=== PATIENT | male | born 1945 | race Caucasian/White ===

== ENCOUNTER → 2021-09-10 | Outpatient (CLI) | payer MEDICARE ==
[2021-09-10 18:15] LABS: Basophils # (A) 0.09 X 10*3/uL (0.00-0.10); Basophils % (A) 0.7 %; Eosinophils # (A) 0.35 X 10*3/uL (0.04-0.35); Eosinophils % (A) 2.7 %; HCT 39.8 % (39.6-50.0); HGB 12.2 g/dL (13.0-17.0); Immature Grans, Automated 0.6 %; Lymphocytes # (A) 1.17 X 10*3/uL (0.90-5.00); Lymphocytes % (A) 9.2 %; MCH 26.7 pg (27.0-32.0); MCHC 30.7 g/dL (32.0-37.0); MCV 87.1 fL (80.0-97.0); Mean Platelet Volume 9.5 fL (9.5-12.2); Monocytes # (A) 1.05 X 10*3/uL (0.20-1.00); Monocytes % (A) 8.2 %; NRBC Per 100 WBC 0 /100 WBCS (0.0-0.0); Neutrophils % (A) 78.6 %; Platelet Count 503 X 10*3/uL (140-440); RBC 4.57 X 10*6/uL (4.40-5.60); RDW 14.2 % (11.5-14.5); WBC 12.74 X 10*3/uL (4.50-10.00)
[2021-09-10 18:25] LABS: ALT 10 U/L (10-49); AST 14 U/L (14-35); African American GFR (CKD) 101.7 (60.0-200.0); Albumin 3.6 g/dL (3.8-4.9); Albumin/Globulin Ratio 1.09 (1.60-3.17); Alkaline Phosphatase 98 U/L (41-126); BUN/Creat Ratio 20.71 Ratio (12.00-20.00); Blood Urea Nitrogen 16.4 mg/dL (9.0-27.0); Calcium 9.1 mg/dL (8.7-10.3); Carbon Dioxide 22.6 mmol/L (20.0-27.5); Chloride 99 mmol/L (96-109); Globulin 3.3 g/dL (1.6-3.3); Glucose 100 mg/dL (70-110); Non-African American GFR(CKD) 87.8 (60.0-200.0); Potassium 4.4 mmol/L (3.5-5.5); Sodium 134 mmol/L (135-145); Total Bilirubin <0.15 mg/dL (0.30-1.20); Total Protein 6.9 g/dL (6.2-8.2)
== END | disposition home or self-care (01) ==
LOC: LABPAT 12:53
PROVIDERS: ATTEND Urology
DX: Z01.812 Encounter for preprocedural laboratory examination (principal); N20.2 Calculus of kidney with calculus of ureter
CPT/HCPCS: 80053; 85025

== ENCOUNTER 2021-09-17 09:14 | Observation (INO) | payer MEDICARE ==
[2021-09-10 15:18] VITALS: BMI 20.3
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
[~2021-09-17 09:14] MED LIST: AMPICILLIN 1,000 MG in SODIUM CHLORIDE 0.9% 50 ML IVPB PRN; GENTAMICIN 100 MG in SODIUM CHLORIDE 0.9% 100 ML IVPB PRN; HYDROmorphone 0.5 MG/0.5 ML SYRINGE IVP PRN; MIDAZOLAM 2 MG/2 ML VIAL IV PRN
[2021-09-17 09:50] LABS: Glucose,Whole Blood 84 mg/dL (75-99)
[2021-09-17] MEDS: LACTATED RINGERS 1,000 ML IV SCH ×2 (09:56→11:02)
[2021-09-17] MEDS ORDERED: LIDOCAINE 1% (10MG/ML) FOR IV START INTRADERMA ONE (09:56)
[2021-09-17] MEDS: DEXAMETHASONE SOD PHOSPHATE 4 MG/ML 1 ML VIAL IV ONE ×2 (09:58→14:31)
[2021-09-17] MEDS: ONDANSETRON 4 MG/2 ML VIAL IVP ONE ×2 (09:58→14:31)
[2021-09-17] MEDS ORDERED: LIDOCAINE 1% INJ 10MG/ML (20 ML MDV) ONE (10:59)
[2021-09-17] MEDS ORDERED: fentaNYL (PF) 50 MCG/ML 2 ML AMP ONE (10:59)
[2021-09-17] MEDS ORDERED: MIDAZOLAM 2 MG/2 ML VIAL ONE (10:59)
[2021-09-17] MEDS ORDERED: ROCURONIUM 10 MG/ML (5 ML VIAL) IV ONE (10:59)
[2021-09-17] MEDS ORDERED: PROPOFOL 10 MG/ML 20 ML VIAL IV ONE (10:59)
[2021-09-17] MEDS ORDERED: GLYCOPYRROLATE 0.2 MG/ML 2 ML VIAL ONE (10:59)
[2021-09-17] MEDS ORDERED: NEOSTIGMINE 1 MG/ML 10 ML VIAL ONE (10:59)
[2021-09-17] MEDS ORDERED: IOPAMIDOL-370 50ML BTL MISCELLANE ONE (12:00)
[2021-09-17] MEDS ORDERED: ONDANSETRON 4 MG/2 ML VIAL IVP PRN (13:54)
[2021-09-17] MEDS ORDERED: KETOROLAC 15 MG/ML 1 ML VIAL IVP PRN (13:55)
[2021-09-17] MEDS ORDERED: HYDROmorphone PCA 10 MG/50 ML BAG IV PRN (13:55)
[2021-09-17] MEDS ORDERED: NALOXONE 0.4 MG/ML 1 ML VIAL IV PRN (13:55)
--- NOTE | 2021-09-17 14:02 | P.OP ---
Date of Procedure: 09/17/21 Preoperative Diagnosis: Left renal calculus, infected, large Postoperative Diagnosis: Same, large bladder calculi Procedure(s) Performed: Cystoscopy, cystolithotripsy (large greater than 2.5 cm), percutaneous nephrostomy (Dr. Bryant percutaneous nephrostolithotomy large, greater than 3 cm with ultrasound, placement of 10 J nephrostomy Anesthesia: JODEE Surgeon: Titus Valerio Estimated Blood Loss (ml): 50 Pathology: other (Bladder stone, kidney stones) Condition: stable Disposition: PACU Indications for Procedure: The patient is 76. He been paraplegic for over 50 years. He is on intermittent catheterization. He is only had a septic episode. He is found to have a staghorn calculus, full branch in the left kidney. He comes for percutaneous nephrostolithotomy. He is on culture specific antibiotics. Description of Procedure: Patient brought to the operative suite. He is given general anesthesia on the operating table. He's placed lithotomy position with sterile prep and drape. Cystoscopy 21-Danish sheath and Foroblique lens identifies an obstructing prostate with edema around the bladder neck. Multiple stones are identified greater than 2.5 cm. Both ureteral orifices identified. With the 500 laser probe I break the stones into tiny fragments and flushed out of the bladder. I then intubate the left ureter orifice with a 5-Danish occluding balloon catheter passed up the UPJ. It is secured to a 16-Danish Edmond The patient's placed in prone position with care to airways and extremities. Dr. Bryant of radiology performed percutaneous access to a middle pole calyx. We were able to then dilate the tract to 30-Danish. I then look in with the rigid scope and identify the large calculus (greater than 3 cm) in the renal pelvis a. With the ultrasonic wand I break this into tinier fragments in either grass then or suction the mouth. The stone is soft consistent with a struvite stone. There are multiple other stones in the renal pelvis that are removed either with ultrasound or grasping. I then pass the flexible scope throughout the collecting system and remove more stones. This is done with stone basketing. I then looked down the UPJ and remove any fragments that he passed down there. At the end of the procedure I see no remaining stone in the collecting system other than sand. A 10 J nephrostomy tube was placed through the working sheath. It is secured to the skin with 2-0 silk. The patient's awake and returned recovery in good condition. He tolerated the procedure well. Blood loss was about 50 mL. A be placed in the hospital postoperatively.
[2021-09-17 14:21] LABS: Glucose,Whole Blood 83 mg/dL (75-99)
[2021-09-17] MEDS ORDERED: hydrALAZINE HCL 20 MG/ML 1 ML VIAL IVP ONE (14:49)
[2021-09-17] MEDS: DEXTROSE 5%-0.45% NACL 1,000 ML IV SCH (15:46)
--- NOTE | 2021-09-17 16:20 | FL ---
EXAMINATION TYPE: FL Perc Nephrostomy New Access DATE OF EXAM: 09/17/2021 COMPARISON: CT scan from outside institution HISTORY: Hydronephrosis, ureteral obstruction with left renal calculi. PROCEDURE: Maximal barrier technique was utilized, hand hygiene obtained with soap and water and alcohol-based h and rub. The skin overlying the left kidney was localized using fluoroscopy and the overlying skin p repped and draped. Skin lisa was made with a scalpel. Access was gained under fluoroscopy, following placement of a ureteral occlusion balloon by the referring clinician and instillation of air in the renal collecting system with a 21-gauge needle to posterior left kidney. A suitable posterior calyx was chosen. A 0.018 inch wire was advanced. The access site was dilated , access site was upsized, safety wire deployed and subsequently a sheath was advanced into the renal pelvis following dilation with balloon along the tract. The patient underwent nephrolithotomy by the referring clinician. Th e patient remained in stable condition without complication. [facility]. 5.06 minutes fluoroscopy time, 10 intraoperative C-arm images document the procedure IMPRESSION: STATUS POST NEPHROSTOMY PLACEMENT FOR NEPHROLITHOTOMY WITH FLUOROSCOPIC GUIDANCE. THIS PROCEDURE PER FORMED BY THE UNDERSIGNED.
[2021-09-17 20:41] LABS: Glucose,Whole Blood 131 mg/dL (75-99)
[2021-09-17] MEDS: MAG HYDROX/AL HYDROX/SIMETH 30 ML CUP PO PRN (21:15)
[2021-09-17] MEDS: CIPROFLOXACIN HCL 500 MG TAB PO SCH (21:15)
[2021-09-17] MEDS: ACETAMINOPHEN TAB 325 MG TAB PO PRN (21:15)
[2021-09-18] MEDS: DEXTROSE 5%-0.45% NACL 1,000 ML IV SCH ×3 (00:17→19:54)
[2021-09-18 06:49] LABS: Glucose,Whole Blood 153 mg/dL (75-99)
--- NOTE | 2021-09-18 07:28 | P.PN ---
Subjective Progress Note Date: 09/18/21 The patient is in his first postoperative day from a left percutaneous nephrostolithotomy (large), cystolithotripsy, (large). He is a T9 paraplegic for many years. Urethral catheter is light pink to T colored. There is a moderate amount of blood in the nephrostomy tube. He is feeling well. His vital signs are stable. He is not ready to be discharged home. We'll continue to observe him and continue with IV fluids for the next 24 hours. DEPending on his responses to whether we discharged tomorrow. Objective - Vital Signs Vital signs: Vital Signs Temp 98.5 F 09/18/21 07:16 Pulse 94 09/18/21 07:16 Resp 16 09/18/21 07:16 BP 138/75 09/18/21 07:16 Pulse Ox 98 09/18/21 07:16 Intake & Output 09/17/21 09/18/21 09/18/21 18:59 06:59 18:59 Intake Total 1227.5 Output Total 1150 Balance 77.5 Weight 68 kg Intake: IV 1227.5 Output: Drainage 100 Left Back 100 Urine 1000 Estimated Blood Loss 50 Other: Voiding Method Indwelling Catheter Indwelling Catheter - Labs Labs: Abnormal Lab Results - Last 24 Hours (Table) 09/17/21 09/18/21 Range/Units 20:23 06:47 POC Glucose (mg/dL) 131 H 153 H (75-99) mg/dL
[2021-09-18] MEDS: LACTATED RINGERS 1,000 ML IV SCH (07:43)
[2021-09-18] MEDS: amLODIPine 5 MG TAB PO SCH (09:24)
[2021-09-18] MEDS: CIPROFLOXACIN HCL 500 MG TAB PO SCH ×2 (09:24→19:56)
[2021-09-18 11:26] LABS: Glucose,Whole Blood 141 mg/dL (75-99)
[2021-09-18 16:21] LABS: Glucose,Whole Blood 158 mg/dL (75-99)
[2021-09-18] MEDS: MAG HYDROX/AL HYDROX/SIMETH 30 ML CUP PO PRN (19:54)
[2021-09-18 20:35] LABS: Glucose,Whole Blood 139 mg/dL (75-99)
[2021-09-18] MEDS ORDERED: MELATONIN 5 MG TABLET PO PRN (22:35)
[2021-09-18] MEDS ORDERED: NA PHOS,M-B/NA PHOS,DI-BA 133 ML ENEMA RECTAL PRN (23:00)
[2021-09-18] MEDS ORDERED: bisacodyL 5 MG TABLET.DR PO PRN (23:00)
[2021-09-19] MEDS: ACETAMINOPHEN TAB 325 MG TAB PO PRN (02:58)
[2021-09-19 07:00] LABS: Glucose,Whole Blood 142 mg/dL (75-99)
[2021-09-19 07:23] VITALS: RESP 19
[2021-09-19] MEDS: LACTATED RINGERS 1,000 ML IV SCH (08:29)
[2021-09-19] MEDS: DEXTROSE 5%-0.45% NACL 1,000 ML IV SCH (08:29)
[2021-09-19] MEDS: amLODIPine 5 MG TAB PO SCH (08:38)
[2021-09-19] MEDS: CIPROFLOXACIN HCL 500 MG TAB PO SCH (08:38)
--- NOTE | 2021-09-19 09:22 | P.DS ---
Providers Date of admission: 09/18/21 14:02 Attending physician: Titus Valerio Primary care physician: [facility] Course: The patient is a 76-year-old T9 paraplegic with a staghorn calculus a left and bladder stones. He underwent cystoscopy lithotripsy and percutaneous nephrostolithotomy on 09/17/2021. He is doing well. He is afebrile this morning. He had a low-grade temperature last night as expected. The urine is clearing up. I'll remove his Edmond catheter. He is ready for discharge home. He will take Tylenol or Motrin for pain. He is given a prescription of Bactrim for infection. He will go home with a nephrostomy tube and follow in the office next week for removal. He'll increase his intermittent catheterization for 6 times per day. Postoperative instructions have been given. Patient Condition at Discharge: Good Plan - Discharge Summary Discharge Rx Participant: Yes New Discharge Prescriptions: No Action amLODIPine [Norvasc] 5 mg PO DAILY Cranberry Conc. 1 tab PO DAILY Discharge Medication List Cranberry Conc. 1 tab PO DAILY 09/10/21 [History] amLODIPine [Norvasc] 5 mg PO DAILY 09/10/21 [History] Follow up Appointment(s)/Referral(s): Titus Valerio MD [STAFF PHYSICIAN] - 09/25/21 8:20 am Discharge Disposition: HOME SELF-CARE
[2021-09-19 11:08] LABS: Glucose,Whole Blood 164 mg/dL (75-99)
[2021-09-19 13:31] VITALS: BP 143/64; PULSE 103; TEMP 99.7
== END 2021-09-19 15:03 | disposition home or self-care (01) ==
LOC: OR 09:14 → 4SSUR 13:53 → OR 09-18 13:46 → 4SSUR 09-18 14:02
PROVIDERS: ADMIT Urology; ATTEND Urology
DX: N13.2 Hydronephrosis with renal and ureteral calculous obstruction (principal); G82.20 Paraplegia, unspecified; N21.0 Calculus in bladder; I10 Essential (primary) hypertension; R73.03 Prediabetes; Z87.440 Personal history of urinary (tract) infections; Z87.442 Personal history of urinary calculi; Z79.899 Other long term (current) drug therapy; Z88.0 Allergy status to penicillin; Z88.1 Allergy status to other antibiotic agents; Z80.9 Family history of malignant neoplasm, unspecified
CPT/HCPCS: 82365; 50432; G0378 ×2; C1769 ×6; C2628; C1894; C1729; J2250; J0360; J1100; J2710; J2405 ×2; J2001; J3010; J1580; J0290; J1885; J2704; Q9967

== ENCOUNTER 2021-09-26 15:10 | Inpatient (IN) | payer MEDICARE ==
[2021-09-26] MEDS ORDERED: ACETAMINOPHEN TAB 500 MG TAB PO STA (16:33)
[2021-09-26] MEDS ORDERED: VANCOMYCIN IV PER PHARMACY 1 EACH MISC MISCELLANE PRN (16:33)
[2021-09-26] MEDS ORDERED: HYDROmorphone 0.5 MG/0.5 ML SYRINGE IVP PRN (16:41)
[2021-09-26] MEDS ORDERED: NALOXONE 0.4 MG/ML 1 ML VIAL IV PRN (16:41)
[2021-09-26] MEDS ORDERED: VANCOMYCIN 1,250 MG in SODIUM CHLORIDE 0.9% 250 ML IVPB STA (16:46)
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
[2021-09-26] MEDS: SODIUM CHLORIDE 0.9% 500 ML 500 ML IV SCH ×2 (18:00→18:40)
[2021-09-26] MEDS: SODIUM CHLORIDE 0.9% 1,000 ML IV SCH (19:45)
[2021-09-26] MEDS: CEFEPIME 2 GM in SODIUM CHLORIDE 0.9% 100 ML IVPB SCH (19:51)
[2021-09-26 23:28] LABS: Basophils # (A) 0.1 k/uL (0-0.2); Basophils % (A) 0 %; Eosinophils # (A) 0.2 k/uL (0-0.7); Eosinophils % (A) 1 %; HCT 26.6 % (39.0-53.0); Hypochromasia Moderate; Lymphocytes # (A) 0.8 k/uL (1.0-4.8); Lymphocytes % (A) 5 %; MCHC 30.1 g/dL (31.0-37.0); MCV 89.8 fL (80.0-100.0); Mean Platelet Volume 7.8; Monocytes # (A) 0.9 k/uL (0-1.0); Monocytes % (A) 6 %; Neutrophils % (A) 87 %; Platelet Count 885 k/uL (150-450); RBC 2.96 m/uL (4.30-5.90); WBC 16.1 k/uL (3.8-10.6)
[2021-09-26 23:31] LABS: Potassium 4.3 mmol/L (3.5-5.1)
[2021-09-26 23:32] LABS: ALT 11 U/L (4-49); AST 19 U/L (17-59); African American GFR (CKD) >90 (>60 ml/min/1.73 sqM); Albumin 2.6 g/dL (3.5-5.0); Alkaline Phosphatase 76 U/L (38-126); Anion Gap 11 mmol/L; Blood Urea Nitrogen 15 mg/dL (9-20); Calcium 7.6 mg/dL (8.4-10.2); Carbon Dioxide 18 mmol/L (22-30); Chloride 98 mmol/L (98-107); Glucose 96 mg/dL (74-99); Non-African American GFR(CKD) 85 (>60 ml/min/1.73 sqM); Sodium 127 mmol/L (137-145); Total Bilirubin 0.6 mg/dL (0.2-1.3); Total Protein 5.6 g/dL (6.3-8.2)
[2021-09-26 23:45] LABS: INR 0.9 (<1.2); Partial Thromboplastin Time 25.8 sec (22.0-30.0); Prothrombin Time 10.1 sec (9.0-12.0)
[2021-09-27] MEDS: SODIUM CHLORIDE 0.9% 1,000 ML IV SCH ×3 (02:48→17:56)
[2021-09-27] MEDS: CEFEPIME 2 GM in SODIUM CHLORIDE 0.9% 100 ML IVPB SCH ×3 (02:48→17:57)
[2021-09-27] MEDS: ACETAMINOPHEN TAB 325 MG TAB PO PRN ×2 (05:50→21:12)
[2021-09-27] MEDS ORDERED: COLLAGENASE 250 UNIT/GM OINTMENT 30 GM TUBE TOPICAL SCH (09:00)
[2021-09-27 09:18] LABS: Basophils # (A) 0.1 k/uL (0-0.2); Basophils % (A) 0 %; Eosinophils # (A) 0.4 k/uL (0-0.7); Eosinophils % (A) 3 %; HCT 25.2 % (39.0-53.0); HGB 7.8 gm/dL (13.0-17.5); Hypochromasia Moderate; Lymphocytes # (A) 0.9 k/uL (1.0-4.8); Lymphocytes % (A) 7 %; MCH 27.5 pg (25.0-35.0); MCHC 30.9 g/dL (31.0-37.0); MCV 88.9 fL (80.0-100.0); Mean Platelet Volume 7.2; Monocytes # (A) 0.6 k/uL (0-1.0); Monocytes % (A) 4 %; Neutrophils # (A) 12.3 k/uL (1.3-7.7); Neutrophils % (A) 86 %; Platelet Count 878 k/uL (150-450); RBC 2.84 m/uL (4.30-5.90); RDW 13.6 % (11.5-15.5); WBC 14.4 k/uL (3.8-10.6)
[2021-09-27] MEDS: VANCOMYCIN 1,250 MG in SODIUM CHLORIDE 0.9% 250 ML IVPB SCH ×2 (09:19→21:11)
[2021-09-27] MEDS: amLODIPine 5 MG TAB PO SCH (09:19)
[2021-09-27 09:27] LABS: African American GFR (CKD) >90 (>60 ml/min/1.73 sqM); Anion Gap 9 mmol/L; Blood Urea Nitrogen 12 mg/dL (9-20); Calcium 7.5 mg/dL (8.4-10.2); Carbon Dioxide 17 mmol/L (22-30); Chloride 104 mmol/L (98-107); Glucose 143 mg/dL (74-99); Non-African American GFR(CKD) 87 (>60 ml/min/1.73 sqM); Potassium 4.3 mmol/L (3.5-5.1); Sodium 130 mmol/L (137-145)
[2021-09-27 09:46] LABS: Appearance,Urine Clear (Clear); Bacteria,Urine Rare /hpf; Bilirubin,Urine Negative (Negative); Blood,Urine Moderate (Negative); Color,Urine Yellow; Glucose,Urine (UA) Negative (Negative); Ketones,Urine Negative (Negative); Leukocyte Esterase,Urine Trace (Negative); Mucus,Urine Rare /hpf; Nitrite,Urine Negative (Negative); Protein,Urine 1+ (Negative); RBC,Urine 13 /hpf (0-5); Specific Gravity,Urine 1.014 (1.001-1.035); Squamous Epithelial Cell,Urine 1 /hpf (0-4); Urobilinogen,Urine <2.0 mg/dL (<2.0); WBC,Urine 12 /hpf (0-5)
[2021-09-27 10:49] VITALS: BMI 20.3
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
[2021-09-27] MEDS ORDERED: hydrALAZINE HCL 25 MG TAB PO PRN (20:53)
[2021-09-27] MEDS ORDERED: NON FORMULARY DRUG (Cranberry Fruit Concentrate [Azo Cranberry] 250 MG Tab.Chew) PO SCH (21:00)
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
[2021-09-28] MEDS: SODIUM CHLORIDE 0.9% 1,000 ML IV SCH ×3 (00:37→15:15)
[2021-09-28] MEDS: CEFEPIME 2 GM in SODIUM CHLORIDE 0.9% 100 ML IVPB SCH ×3 (02:30→17:28)
[2021-09-28] MEDS: PANTOPRAZOLE 40 MG TABLET PO SCH (07:57)
[2021-09-28] MEDS: amLODIPine 5 MG TAB PO SCH (07:58)
[2021-09-28] MEDS ORDERED: VANCOMYCIN TROUGH DUE 1 EACH MISC MISCELLANE ONE (08:00)
[2021-09-28 08:26] LABS: Basophils # (A) 0.1 k/uL (0-0.2); Basophils % (A) 1 %; Eosinophils # (A) 0.6 k/uL (0-0.7); Eosinophils % (A) 3 %; HCT 25.4 % (39.0-53.0); HGB 7.7 gm/dL (13.0-17.5); Hypochromasia Moderate; Lymphocytes # (A) 1.1 k/uL (1.0-4.8); Lymphocytes % (A) 7 %; MCH 26.8 pg (25.0-35.0); MCHC 30.4 g/dL (31.0-37.0); MCV 88.2 fL (80.0-100.0); Mean Platelet Volume 6.8; Monocytes # (A) 0.7 k/uL (0-1.0); Monocytes % (A) 4 %; Neutrophils # (A) 14.1 k/uL (1.3-7.7); Neutrophils % (A) 84 %; Platelet Count 784 k/uL (150-450); RBC 2.88 m/uL (4.30-5.90); RDW 13.2 % (11.5-15.5); WBC 16.7 k/uL (3.8-10.6)
[2021-09-28 08:38] LABS: African American GFR (CKD) >90 (>60 ml/min/1.73 sqM); Anion Gap 8 mmol/L; Blood Urea Nitrogen 12 mg/dL (9-20); Calcium 7.8 mg/dL (8.4-10.2); Carbon Dioxide 19 mmol/L (22-30); Chloride 105 mmol/L (98-107); Glucose 93 mg/dL (74-99); Non-African American GFR(CKD) >90 (>60 ml/min/1.73 sqM); Potassium 4.4 mmol/L (3.5-5.1); Sodium 132 mmol/L (137-145)
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
[2021-09-28] MEDS: VANCOMYCIN 1,250 MG in SODIUM CHLORIDE 0.9% 250 ML IVPB SCH ×2 (10:52→20:15)
[2021-09-28] MEDS ORDERED: PROPOFOL 10 MG/ML 20 ML VIAL IV ONE (12:35)
[2021-09-28] MEDS ORDERED: fentaNYL (PF) 50 MCG/ML 2 ML AMP ONE (12:35)
[2021-09-28] MEDS ORDERED: LIDOCAINE 1% INJ 10MG/ML (20 ML MDV) ONE (12:35)
[2021-09-28] MEDS ORDERED: SODIUM CHLORIDE 0.9% 1,000 ML IV ONE ×2 (12:39)
[2021-09-28] MEDS ORDERED: BUPIVACAIN-EPI 0.25%-1:200,000 30 ML VIAL SQ ONE (12:42)
--- NOTE | 2021-09-28 13:30 | P.OP ---
Date of Procedure: 09/28/21 Preoperative Diagnosis: Infected decubitus ulcer Postoperative Diagnosis: Infected decubitus ulcer Procedure(s) Performed: Debridement of infected decubitus ulcer Debridement of left trochanteric ulcer Anesthesia: JODEE Surgeon: Prosper Macario Estimated Blood Loss (ml): 50 Pathology: other (Wound culture, tissue culture) Condition: stable Description of Procedure: The patient's placed on the operative table in supine position. He received general endotracheal anesthesia. He was then placed in the lateral position with the left side up. Patient's decubitus ulcer prepped and draped usual fashion. The patient had a large left decubitus ulcer on the trochanteric area. This was sharply dissected with 15 blade and then using electrocautery the nonviable skin and fat and muscle was debrided. The specimens of pathology. Hemostasis achieved with cautery. The wound measured approximately 10 x 10 cm and was approximately 4 cm deep. The decubital ulcer went down to the level of the bone. Next the sacral decubitus ulcer was sharply debrided using a 15 blade the necrotic skin and fat and muscle were sharply debrided and then a left cautery used for hemostasis. The wound measured approximately 14 x 10 x 4 cm. The decubital ulcer down to the level of the coccyx. He was essentially she will let cautery. The wound was then packed with wet-to-dry dressing. Patient top she will was sent to recovery room stable condition.
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
[2021-09-28] MEDS: ACETAMINOPHEN TAB 325 MG TAB PO PRN (19:26)
[2021-09-28] MEDS: HEPARIN SODIUM,PORCINE/PF 5,000 UNIT/0.5 ML SYRINGE SQ SCH (20:15)
--- NOTE | 2021-09-28 23:41 | P.PN ---
Subjective Progress Note Date: 09/28/21 Principal diagnosis: Infected sacral and left trochanteric pressure ulcer Patient is a 76 year male with a past medical history significant for paraplegia admitted to the hospital with worsening sacral and left trochanteric pressure ulcer in this patient who is status post surgical debridement of those ulcer completed on 09/28/2021 and was noticed the sacral area To Be Extended down to the Coccyx. On today's evaluation that is 09/28/2021, the patient denies having any fever or chills, patient do not have any pain to the wound area because of his paraplegia, the patient denies having any chest pain or shortness of breath or cough no nausea no vomiting no abdominal pain no diarrhea Objective - Vital Signs Vital signs: Vital Signs Temp 99.8 F H 09/28/21 11:43 Pulse 99 09/28/21 11:43 Resp 16 09/28/21 11:43 BP 158/70 09/28/21 11:43 Pulse Ox 98 09/28/21 11:43 Intake & Output 09/27/21 09/28/21 09/28/21 18:59 06:59 18:59 Intake Total 1890 1250 Output Total 1550 920 920 Balance 340 330 -920 Weight 68.039 kg Intake: Intake, IV Titration 1650 1250 Amount Cefepime 2 gm In Sodium 100 100 Chloride 0.9% 100 ml @ 25 mls/hr IVPB Q8H [facility] Rx#: [id number] Sodium Chloride 0.9% 1, 1300 900 000 ml @ 130 mls/hr IV . Q7H42M [facility] Rx#:[id number] Vancomycin 1,250 mg In 250 250 Sodium Chloride 0.9% 250 ml @ 125 mls/hr IVPB Q12H [facility] Rx#:[id number] Oral 240 Output: Urine 1550 920 920 Other: Voiding Method Self-Catheterization Self-Catheterization Self-Catheterization # Voids 1 - Exam GENERAL DESCRIPTION: An elderly male lying in bed in no distress RESPIRATORY SYSTEM: Unlabored breathing , decreased breath sounds at bases HEART: S1 S2 regular rate and rhythm , ABDOMEN: Soft , no tenderness EXTREMITIES: No edema feet - Labs CBC & Chem 7: 09/28/21 08:03 09/28/21 08:03 Labs: Abnormal Lab Results - Last 24 Hours (Table) 09/28/21 09/28/21 Range/Units 08:03 08:03 WBC 16.7 H (3.8-10.6) k/uL RBC 2.88 L (4.30-5.90) m/uL Hgb 7.7 L (13.0-17.5) gm/dL Hct 25.4 L (39.0-53.0) % MCHC 30.4 L (31.0-37.0) g/dL Plt Count 784 H (150-450) k/uL Neutrophils # 14.1 H (1.3-7.7) k/uL Sodium 132 L (137-145) mmol/L Carbon Dioxide 19 L (22-30) mmol/L Calcium 7.8 L (8.4-10.2) mg/dL Microbiology - Last 24 Hours (Table) 09/27/21 09:25 Urine Culture - Final Urine,Voided 09/26/21 19:10 Blood Culture - Preliminary Blood No Growth after 24 hours 09/26/21 19:18 Blood Culture - Preliminary Blood No Growth after 24 hours 09/26/21 18:52 Gram Stain - Preliminary Tissue - Other Wound Culture - Preliminary Gram Neg Bacilli Assessment and Plan (1) Infected decubitus ulcer Current Visit: Yes Status: Acute Code(s): L89.90 - PRESSURE ULCER OF UNSPECIFIED SITE, UNSPECIFIED STAGE; L08.9 - LOCAL INFECTION OF THE SKIN AND SUBCUTANEOUS TISSUE, UNSP SNOMED Code(s): 453726709 (2) Sepsis Current Visit: Yes Status: Acute Code(s): A41.9 - SEPSIS, UNSPECIFIED ORGANISM SNOMED Code(s): 97183648 Plan: 1patient presented to hospital with sepsis source is infected sacral and bilateral ischial pressure ulcer and will need to cover for the gram-positive as well as the gram-negative pathogen. 2patient with multiple antibiotic allergies that would limit the number of antibiotics safe to use. 3patient is status post surgical debridement and deep culture which should be followed and antibiotic adjusted 4vancomycin pharmacy to dose target trough of 15 while watching kidney function and vancomycin trough closely. 5cefepime 2 g every 8 hours to continue all waiting for the culture finalized Time with Patient: Less than 30
[2021-09-29] MEDS: SODIUM CHLORIDE 0.9% 1,000 ML IV SCH ×3 (00:46→17:22)
[2021-09-29] MEDS: CEFEPIME 2 GM in SODIUM CHLORIDE 0.9% 100 ML IVPB SCH ×3 (03:11→17:32)
[2021-09-29 08:07] LABS: African American GFR (CKD) >90 (>60 ml/min/1.73 sqM); Non-African American GFR(CKD) 89 (>60 ml/min/1.73 sqM)
--- NOTE | 2021-09-29 09:19 | P.PN ---
Subjective Progress Note Date: 09/29/21 Principal diagnosis: Decubitus ulcer Patient resting comfortably. No dressing changes thus far. No nausea or vomiting. Tolerating diet. Objective - Vital Signs Vital signs: Vital Signs Temp 98.5 F 09/29/21 08:06 Pulse 87 09/29/21 08:06 Resp 16 09/29/21 08:06 BP 138/67 09/29/21 08:06 Pulse Ox 99 09/29/21 08:06 Intake & Output 09/28/21 09/29/21 09/29/21 18:59 06:59 18:59 Intake Total 2530 620 Output Total 2865 250 Balance -335 370 Intake: IV 100 Intake, IV Titration 1650 620 Amount Cefepime 2 gm In Sodium 100 100 Chloride 0.9% 100 ml @ 25 mls/hr IVPB Q8H [facility] Rx#: [id number] Sodium Chloride 0.9% 1, 1300 520 000 ml @ 130 mls/hr IV . Q7H42M [facility] Rx#:[id number] Vancomycin 1,250 mg In 250 Sodium Chloride 0.9% 250 ml @ 125 mls/hr IVPB Q12H [facility] Rx#:[id number] Oral 780 Output: Urine 2840 250 Estimated Blood Loss 25 Other: Voiding Method Self-Catheterization Self-Catheterization # Voids 2 - Exam Decubitus ulcer dressing in place, no strikethrough, mild tenderness - Labs CBC & Chem 7: 09/28/21 08:03 09/29/21 07:24 Labs: Microbiology - Last 24 Hours (Table) 09/28/21 13:26 Gram Stain - Preliminary Buttock Wound Culture - Preliminary 09/28/21 13:26 Gram Stain - Preliminary Buttock Tissue Culture - Preliminary 09/26/21 18:52 Gram Stain - Final Tissue - Other Wound Culture - Final Klebsiella pneumoniae 09/26/21 19:10 Blood Culture - Preliminary Blood No Growth after 48 hours 09/26/21 19:18 Blood Culture - Preliminary Blood No Growth after 48 hours 09/28/21 13:26 Anaerobic Culture - Preliminary Buttock 09/28/21 13:26 Anaerobic Culture - Preliminary Buttock 09/27/21 09:25 Urine Culture - Final Urine,Voided Assessment and Plan (1) Infected decubitus ulcer Narrative/Plan: Patient status post debridement decubitus ulcer. Seems to be doing well today. T-max 99.7. Continue local wound care and offloading. Current Visit: Yes Status: Acute Code(s): L89.90 - PRESSURE ULCER OF UNSPECIFIED SITE, UNSPECIFIED STAGE; L08.9 - LOCAL INFECTION OF THE SKIN AND SUBCUTANEOUS TISSUE, UNSP SNOMED Code(s): 305080247
[2021-09-29] MEDS: HEPARIN SODIUM,PORCINE/PF 5,000 UNIT/0.5 ML SYRINGE SQ SCH ×2 (09:20→20:10)
[2021-09-29] MEDS: amLODIPine 5 MG TAB PO SCH (09:20)
[2021-09-29] MEDS: VANCOMYCIN 1,250 MG in SODIUM CHLORIDE 0.9% 250 ML IVPB SCH ×2 (09:20→20:09)
[2021-09-29] MEDS: PANTOPRAZOLE 40 MG TABLET PO SCH (09:20)
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
--- NOTE | 2021-09-29 16:28 | P.PN ---
Subjective Progress Note Date: 09/29/21 Principal diagnosis: Infected sacral and left trochanteric pressure ulcer Patient is a 76 year male with a past medical history significant for paraplegia admitted to the hospital with worsening sacral and left trochanteric pressure ulcer in this patient who is status post surgical debridement of those ulcer completed on 09/28/2021 and was noticed the sacral area To Be Extended down to the Coccyx. On today's evaluation that is 09/29/2021, the patient remains to be afebrile, patient denies any pain to the wound area because of his paraplegia, the patient denies having any chest pain or shortness of breath or cough no nausea no vomiting no abdominal pain no diarrhea Objective - Vital Signs Vital signs: Vital Signs Temp 100.0 F H 09/29/21 13:48 Pulse 104 H 09/29/21 13:48 Resp 16 09/29/21 13:48 BP 115/61 09/29/21 13:48 Pulse Ox 98 09/29/21 13:48 Intake & Output 09/28/21 09/29/21 09/29/21 18:59 06:59 18:59 Intake Total 2530 620 Output Total 2865 250 Balance -335 370 Intake: IV 100 Intake, IV Titration 1650 620 Amount Cefepime 2 gm In Sodium 100 100 Chloride 0.9% 100 ml @ 25 mls/hr IVPB Q8H [facility] Rx#: [id number] Sodium Chloride 0.9% 1, 1300 520 000 ml @ 130 mls/hr IV . Q7H42M [facility] Rx#:[id number] Vancomycin 1,250 mg In 250 Sodium Chloride 0.9% 250 ml @ 125 mls/hr IVPB Q12H [facility] Rx#:[id number] Oral 780 Output: Urine 2840 250 Estimated Blood Loss 25 Other: Voiding Method Self-Catheterization Self-Catheterization Self-Catheterization # Voids 2 - Exam GENERAL DESCRIPTION: An elderly male lying in bed in no distress RESPIRATORY SYSTEM: Unlabored breathing , decreased breath sounds at bases HEART: S1 S2 regular rate and rhythm , ABDOMEN: Soft , no tenderness Sacral and left tuberosity wound had did have some slough tissue minimal surrounding redness no drainage EXTREMITIES: No edema feet - Labs CBC & Chem 7: 09/28/21 08:03 09/29/21 07:24 Labs: Microbiology - Last 24 Hours (Table) 09/28/21 13:26 Gram Stain - Preliminary Buttock Wound Culture - Preliminary Group D Enterococcus 09/28/21 13:26 Gram Stain - Preliminary Buttock Tissue Culture - Preliminary 09/26/21 18:52 Gram Stain - Final Tissue - Other Wound Culture - Final Klebsiella pneumoniae 09/26/21 19:10 Blood Culture - Preliminary Blood No Growth after 48 hours 09/26/21 19:18 Blood Culture - Preliminary Blood No Growth after 48 hours 09/28/21 13:26 Anaerobic Culture - Preliminary Buttock 09/28/21 13:26 Anaerobic Culture - Preliminary Buttock Assessment and Plan (1) Infected decubitus ulcer Current Visit: Yes Status: Acute Code(s): L89.90 - PRESSURE ULCER OF UNSPECIFIED SITE, UNSPECIFIED STAGE; L08.9 - LOCAL INFECTION OF THE SKIN AND SUBCUTANEOUS TISSUE, UNSP SNOMED Code(s): 852624729 (2) Sepsis Current Visit: Yes Status: Acute Code(s): A41.9 - SEPSIS, UNSPECIFIED ORGANISM SNOMED Code(s): 36093809 Plan: 1patient presented to hospital with sepsis source is infected sacral and bilat eral ischial pressure ulcer and will need to cover for the gram-positive as well as the gram-negative pathogen. 2patient with multiple antibiotic allergies that would limit the number of antibiotics safe to use. 3patient is status post surgical debridement and deep culture which are currently growing group D enterococcus and Klebsiella 4patient to continue with vancomycin pharmacy to dose target trough of 15 and cefepime 2 g every 8 hours 5-local wound care with Santyl to the base of the wound followed by the wound VAC to be changed Friday and Time with Patient: Less than 30
[2021-09-29] MEDS: COLLAGENASE 250 UNIT/GM OINTMENT 30 GM TUBE TOPICAL SCH (16:35)
[2021-09-29] MEDS: ACETAMINOPHEN TAB 325 MG TAB PO PRN (22:12)
[2021-09-30] MEDS: SODIUM CHLORIDE 0.9% 1,000 ML IV SCH ×4 (02:10→20:56)
[2021-09-30] MEDS: CEFEPIME 2 GM in SODIUM CHLORIDE 0.9% 100 ML IVPB SCH ×3 (02:46→17:25)
[2021-09-30] MEDS: COLLAGENASE 250 UNIT/GM OINTMENT 30 GM TUBE TOPICAL SCH (07:55)
[2021-09-30 07:59] LABS: African American GFR (CKD) >90 (>60 ml/min/1.73 sqM); Non-African American GFR(CKD) 89 (>60 ml/min/1.73 sqM)
[2021-09-30] MEDS: PANTOPRAZOLE 40 MG TABLET PO SCH (08:18)
[2021-09-30] MEDS: HEPARIN SODIUM,PORCINE/PF 5,000 UNIT/0.5 ML SYRINGE SQ SCH ×2 (08:18→20:55)
[2021-09-30] MEDS: amLODIPine 5 MG TAB PO SCH (08:18)
[2021-09-30] MEDS: VANCOMYCIN 1,250 MG in SODIUM CHLORIDE 0.9% 250 ML IVPB SCH ×2 (08:18→20:55)
--- NOTE | 2021-09-30 10:24 | P.PN ---
Subjective Progress Note Date: 09/30/21 Principal diagnosis: Decubitus ulcer Patient doing well today. Says his pain has improved significantly since the debridement was performed. Wound VAC was placed yesterday. Objective - Vital Signs Vital signs: Vital Signs Temp 98.6 F 09/30/21 05:10 Pulse 85 09/30/21 05:10 Resp 18 09/30/21 05:10 BP 116/76 09/30/21 05:10 Pulse Ox 97 09/30/21 05:10 Intake & Output 09/29/21 09/30/21 09/30/21 18:59 06:59 18:59 Intake Total 1560 870 Output Total 1000 Balance 1560 870 -1000 Intake: Intake, IV Titration 1560 870 Amount Cefepime 2 gm In Sodium 100 Chloride 0.9% 100 ml @ 25 mls/hr IVPB Q8H [facility] Rx#: [id number] Sodium Chloride 0.9% 1, 1560 520 000 ml @ 130 mls/hr IV . Q7H42M [facility] Rx#:[id number] Vancomycin 1,250 mg In 250 Sodium Chloride 0.9% 250 ml @ 125 mls/hr IVPB Q12H [facility] Rx#:[id number] Output: Urine 1000 Other: Voiding Method Self-Catheterization Self-Catheterization # Bowel Movements 1 1 - Exam 2 separate wound VAC dressings in place and functioning nicely - Labs CBC & Chem 7: 09/28/21 08:03 09/30/21 07:33 Labs: Microbiology - Last 24 Hours (Table) 09/26/21 18:52 Anaerobic Culture - Final Other - Other Anaerobic Gm Negative Bacilli Anaerobic Gm Negative Bacilli#2 Anaerobic Gm Negative Bacilli#3 09/26/21 19:10 Blood Culture - Preliminary Blood No Growth after 72 hours 09/26/21 19:18 Blood Culture - Preliminary Blood No Growth after 72 hours 09/28/21 13:26 Gram Stain - Preliminary Buttock Wound Culture - Preliminary Group D Enterococcus Assessment and Plan (1) Infected decubitus ulcer Narrative/Plan: Patient doing better at this time. Continue wound VAC therapy. Continue offloading. Current Visit: Yes Status: Acute Code(s): L89.90 - PRESSURE ULCER OF UNSPECIFIED SITE, UNSPECIFIED STAGE; L08.9 - LOCAL INFECTION OF THE SKIN AND SUBCUTANEOUS TISSUE, UNSP SNOMED Code(s): 810022201
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
[2021-09-30] MEDS: ACETAMINOPHEN TAB 325 MG TAB PO PRN (22:41)
--- NOTE | 2021-09-30 23:52 | P.PN ---
Subjective Progress Note Date: 09/30/21 Principal diagnosis: Infected sacral and left trochanteric pressure ulcer Patient is a 76 year male with a past medical history significant for paraplegia admitted to the hospital with worsening sacral and left trochanteric pressure ulcer in this patient who is status post surgical debridement of those ulcer completed on 09/28/2021 and was noticed the sacral area To Be Extended down to the Coccyx. On today's evaluation that is 09/30/2021, the patient denies any fever or any chills, patient denies any pain to the wound area because of his paraplegia, the patient denies chest pain or shortness of breath or cough no nausea no vomiting no abdominal pain no diarrhea, overall feeling better Objective - Vital Signs Vital signs: Vital Signs Temp 98.2 F 09/30/21 11:09 Pulse 97 09/30/21 11:09 Resp 18 09/30/21 11:09 BP 155/68 09/30/21 11:09 Pulse Ox 98 09/30/21 11:09 Intake & Output 09/29/21 09/30/21 09/30/21 18:59 06:59 18:59 Intake Total 1560 870 Output Total 1000 Balance 1560 870 -1000 Intake: Intake, IV Titration 1560 870 Amount Cefepime 2 gm In Sodium 100 Chloride 0.9% 100 ml @ 25 mls/hr IVPB Q8H [facility] Rx#: [id number] Sodium Chloride 0.9% 1, 1560 520 000 ml @ 130 mls/hr IV . Q7H42M [facility] Rx#:[id number] Vancomycin 1,250 mg In 250 Sodium Chloride 0.9% 250 ml @ 125 mls/hr IVPB Q12H [facility] Rx#:[id number] Output: Urine 1000 Other: Voiding Method Self-Catheterization Self-Catheterization Self-Catheterization # Bowel Movements 1 1 - Exam GENERAL DESCRIPTION: An elderly male lying in bed in no distress RESPIRATORY SYSTEM: Unlabored breathing , decreased breath sounds at bases HEART: S1 S2 regular rate and rhythm , ABDOMEN: Soft , no tenderness Sacral and left tuberosity wound had did have some slough tissue minimal surrounding redness no drainage EXTREMITIES: No edema feet - Labs CBC & Chem 7: 09/28/21 08:03 09/30/21 07:33 Labs: Microbiology - Last 24 Hours (Table) 09/28/21 13:26 Gram Stain - Final Buttock Wound Culture - Final Enterococcus faecalis 09/28/21 13:26 Gram Stain - Preliminary Buttock Tissue Culture - Preliminary Group D Enterococcus Diphtheroid species 09/26/21 18:52 Anaerobic Culture - Final Other - Other Anaerobic Gm Negative Bacilli Anaerobic Gm Negative Bacilli#2 Anaerobic Gm Negative Bacilli#3 09/26/21 19:10 Blood Culture - Preliminary Blood No Growth after 72 hours 09/26/21 19:18 Blood Culture - Preliminary Blood No Growth after 72 hours Assessment and Plan (1) Infected decubitus ulcer Current Visit: Yes Status: Acute Code(s): L89.90 - PRESSURE ULCER OF UNSPECIFIED SITE, UNSPECIFIED STAGE; L08.9 - LOCAL INFECTION OF THE SKIN AND SUBCUTANEOUS TISSUE, UNSP SNOMED Code(s): 693823541 (2) Sepsis Current Visit: Yes Status: Acute Code(s): A41.9 - SEPSIS, UNSPECIFIED ORGANISM SNOMED Code(s): 88440573 Plan: 1patient presented to hospital with sepsis source is infected sacral and bilateral ischial pressure ulcer and will need to cover for the gram-positive as well as the gram-negative pathogen. 2patient with multiple antibiotic allergies that would limit the number of antibiotics safe to use. 3patient is status post surgical debridement and deep culture which are currently growing group D enterococcus, Klebsiella and anaerobes 4patient to continue with vancomycin pharmacy to dose target trough of 15 , cefepime 2 g every 8 hours will add Flagyl to cover for the anaerobes 5-local wound care with Santyl to the base of the wound followed by the wound VAC to be changed Friday and 6-patient will need a PICC line for at least 6 weeks of IV antibiotic therapy on discharge with concern for underlying osteomyelitis at the bedside multiple questions were answered Time with Patient: Less than 30
[2021-10-01] MEDS: CEFEPIME 2 GM in SODIUM CHLORIDE 0.9% 100 ML IVPB SCH ×3 (02:09→17:32)
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
[2021-10-01] MEDS: PANTOPRAZOLE 40 MG TABLET PO SCH (08:00)
[2021-10-01] MEDS: HEPARIN SODIUM,PORCINE/PF 5,000 UNIT/0.5 ML SYRINGE SQ SCH ×2 (08:00→21:27)
[2021-10-01] MEDS: metroNIDAZOLE 500 MG TAB PO SCH ×3 (08:00→21:27)
[2021-10-01] MEDS: VANCOMYCIN 1,250 MG in SODIUM CHLORIDE 0.9% 250 ML IVPB SCH ×2 (08:00→21:28)
[2021-10-01] MEDS: amLODIPine 5 MG TAB PO SCH (08:00)
[2021-10-01] MEDS: SODIUM CHLORIDE 0.9% 1,000 ML IV SCH ×2 (08:02→17:36)
[2021-10-01] MEDS: COLLAGENASE 250 UNIT/GM OINTMENT 30 GM TUBE TOPICAL SCH (10:14)
[2021-10-01] MEDS ORDERED: IV FLUID CONTINUATION 1,000 ML IV ONE (10:49)
[2021-10-01] MEDS ORDERED: LIDOCAINE 1% INJ 10MG/ML (20 ML MDV) SQ ONE (11:01)
--- NOTE | 2021-10-01 11:25 | IR ---
PICC LINE PLACEMENT: HISTORY: Infection requiring long-term antibiotic therapy PROCEDURE: Ultrasound and fluoroscopic guidance of PICC line placement. COMPLICATIONS: None ANESTHESIA: 1. 1% Lidocaine locally. FINDINGS/TECHNIQUE: The procedure was explained to the patient. The risks, complications, benefits and alternatives were discussed and any questions were answered. Informed consent was obtained. The patient was placed supine on the fluoroscopic table and prepped and draped in the usual sterile fash ion. Utilizing a 21 gauge needle and sonographic and fluoroscopic guidance, access in the left ceph alic vein was achieved and there is placement of a 0.018 guidewire. The vein is patent. A 4-F sheat h was placed over the guidewire. The guidewire and dilator were removed and a 4-F. PICC line was eric ching through the sheath with the tip at the level of the SVC. The sheath was removed, the catheter wa s flushed and sutured into position. The patient was stable throughout the procedure and remained st able upon discharge from the Department of Radiology. The vein puncture was patent under ultrasound. A clemente scale image was obtained to document patency of the vein punctured. All elements of the maximal barrier technique were utilized. FLUOROSCOPY TIME: 0.1 minutes and one images submitted IMPRESSION: Successful PICC line placement under ultrasound and fluoroscopic guidance.
[2021-10-01 11:43] LABS: HCT 27.2 % (39.0-53.0); HGB 8.5 gm/dL (13.0-17.5); Hypochromasia Marked; MCH 27.8 pg (25.0-35.0); MCHC 31.2 g/dL (31.0-37.0); MCV 89.1 fL (80.0-100.0); Mean Platelet Volume 6.5; Platelet Count 922 k/uL (150-450); RBC 3.06 m/uL (4.30-5.90); WBC 13.8 k/uL (3.8-10.6)
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
[2021-10-01 11:54] LABS: African American GFR (CKD) >90 (>60 ml/min/1.73 sqM); Anion Gap 8 mmol/L; Blood Urea Nitrogen 13 mg/dL (9-20); Carbon Dioxide 21 mmol/L (22-30); Chloride 105 mmol/L (98-107); Glucose 129 mg/dL (74-99); Non-African American GFR(CKD) 88 (>60 ml/min/1.73 sqM); Potassium 3.8 mmol/L (3.5-5.1); Sodium 134 mmol/L (137-145)
--- NOTE | 2021-10-01 13:14 | P.PN ---
Subjective Progress Note Date: 10/01/21 CHIEF COMPLAINT: Decubitus ulcer HISTORY OF PRESENT ILLNESS: Patient is status post debridement of decubitus ulcer. He has wound vacs in place. He's scheduled for discharge later today. He is tolerating regular diet. Has any pain. Afebrile. WBC is down from 16.7- 13.8 hemoglobin 8.5 platelets 922 PHYSICAL EXAM: VITAL SIGNS: Reviewed. GENERAL: Well-developed in no acute distress. HEENT: No sclera icterus. Extraocular movements grossly intact. Moist buccal mucosa. Head is atraumatic, normocephalic. ABDOMEN: Soft. Nondistended. Nontender. Patient has [address] that are functioning NEUROLOGIC: Alert and oriented. Cranial nerves II through XII grossly intact. ASSESSMENT: 1. Infected decubitus ulcers status post debridement PLAN: -Continue wound vacs -Continue offloading -Continue supportive care -Antibiotics per ID service -Patient can be discharge from surgical standpoint Physician Freight Shipping Agent note has been reviewed by physician. Signing provider agrees with the documented findings, assessment, and plan of care. Objective - Vital Signs Vital signs: Vital Signs Temp 98.3 F 10/01/21 04:45 Pulse 80 10/01/21 04:45 Resp 20 10/01/21 04:45 BP 130/72 10/01/21 04:45 Pulse Ox 98 10/01/21 04:45 Intake & Output 09/30/21 10/01/21 10/01/21 18:59 06:59 18:59 Intake Total 1560 100 25 Output Total 2000 750 Balance -440 -650 25 Intake: IV 25 Intake, IV Titration 1560 Amount Sodium Chloride 0.9% 1, 1560 000 ml @ 130 mls/hr IV . Q7H42M [facility] Rx#:[id number] Oral 100 Output: Urine 2000 750 Other: Voiding Method Self-Catheterization Self-Catheterization # Voids 1 1 - Labs CBC & Chem 7: 10/01/21 11:21 10/01/21 11:21 Labs: Abnormal Lab Results - Last 24 Hours (Table) 10/01/21 10/01/21 Range/Units 11:21 11:21 WBC 13.8 H (3.8-10.6) k/uL RBC 3.06 L (4.30-5.90) m/uL Hgb 8.5 L (13.0-17.5) gm/dL Hct 27.2 L (39.0-53.0) % Plt Count 922 H (150-450) k/uL Sodium 134 L (137-145) mmol/L Carbon Dioxide 21 L (22-30) mmol/L Glucose 129 H (74-99) mg/dL Calcium 8.0 L (8.4-10.2) mg/dL Microbiology - Last 24 Hours (Table) 09/28/21 13:26 Gram Stain - Final Buttock Tissue Culture - Final Enterococcus faecalis Diphtheroid species Diphtheroid species#2 09/26/21 19:10 Blood Culture - Preliminary Blood No Growth after 96 hours 09/26/21 19:18 Blood Culture - Preliminary Blood No Growth after 96 hours 09/28/21 13:26 Gram Stain - Final Buttock Wound Culture - Final Enterococcus faecalis
[2021-10-01 13:56] VITALS: RESP 16
--- NOTE | 2021-10-01 21:34 | P.PN ---
Subjective Progress Note Date: 10/01/21 Principal diagnosis: Infected sacral and left trochanteric pressure ulcer Patient is a 76 year male with a past medical history significant for paraplegia admitted to the hospital with worsening sacral and left trochanteric pressure ulcer in this patient who is status post surgical debridement of those ulcer completed on 09/28/2021 and was noticed the sacral area To Be Extended down to the Coccyx. Patient is a PICC line currently waiting for placement On today's evaluation that is 10/01/2021, the patient remains to be afebrile, patient denies pain to the sacral wound area , the patient denies chest pain or shortness of breath or cough no nausea no vomiting no abdominal pain no diarrhea, patient mentioned he has good spirits Objective - Vital Signs Vital signs: Vital Signs Temp 98.9 F 10/01/21 13:25 Pulse 97 10/01/21 13:25 Resp 16 10/01/21 13:25 BP 142/64 10/01/21 13:25 Pulse Ox 96 10/01/21 13:25 Intake & Output 09/30/21 10/01/21 10/01/21 18:59 06:59 18:59 Intake Total 1560 100 25 Output Total 2000 750 Balance -440 -650 25 Intake: IV 25 Intake, IV Titration 1560 Amount Sodium Chloride 0.9% 1, 1560 000 ml @ 130 mls/hr IV . Q7H42M [facility] Rx#:[id number] Oral 100 Output: Urine 2000 750 Other: Voiding Method Self-Catheterization Self-Catheterization # Voids 1 1 - Exam GENERAL DESCRIPTION: An elderly male lying in bed in no distress RESPIRATORY SYSTEM: Unlabored breathing , decreased breath sounds at bases HEART: S1 S2 regular rate and rhythm , ABDOMEN: Soft , no tenderness Sacral and left tuberosity wound had did have some slough tissue minimal surrounding redness no drainage EXTREMITIES: No edema feet - Labs CBC & Chem 7: 10/01/21 11:21 10/01/21 11:21 Labs: Abnormal Lab Results - Last 24 Hours (Table) 10/01/21 10/01/21 Range/Units 11:21 11:21 WBC 13.8 H (3.8-10.6) k/uL RBC 3.06 L (4.30-5.90) m/uL Hgb 8.5 L (13.0-17.5) gm/dL Hct 27.2 L (39.0-53.0) % Plt Count 922 H (150-450) k/uL Sodium 134 L (137-145) mmol/L Carbon Dioxide 21 L (22-30) mmol/L Glucose 129 H (74-99) mg/dL Calcium 8.0 L (8.4-10.2) mg/dL Microbiology - Last 24 Hours (Table) 09/28/21 13:26 Gram Stain - Final Buttock Tissue Culture - Final Enterococcus faecalis Diphtheroid species Diphtheroid species#2 09/26/21 19:10 Blood Culture - Preliminary Blood No Growth after 96 hours 09/26/21 19:18 Blood Culture - Preliminary Blood No Growth after 96 hours 09/28/21 13:26 Gram Stain - Final Buttock Wound Culture - Final Enterococcus faecalis Assessment and Plan (1) Infected decubitus ulcer Current Visit: Yes Status: Acute Code(s): L89.90 - PRESSURE ULCER OF UNSPECIFIED SITE, UNSPECIFIED STAGE; L08.9 - LOCAL INFECTION OF THE SKIN AND SUBCUTANEOUS TISSUE, UNSP SNOMED Code(s): 273264694 (2) Sepsis Current Visit: Yes Status: Acute Code(s): A41.9 - SEPSIS, UNSPECIFIED ORGANISM SNOMED Code(s): 21365711 Plan: 1patient presented to hospital with sepsis source is infected sacral and bilateral ischial pressure ulcer and will need to cover for the gram-positive as well as the gram-negative pathogen. 2patient with multiple antibiotic allergies that would limit the number of antibiotics safe to use. 3patient is status post surgical debridement and deep culture which are currently growing group D enterococcus, Klebsiella and anaerobes 4patient to continue with vancomycin pharmacy to dose target trough of 15 , cefepime 2 g every 8 hours will add Flagyl to cover for the anaerobes 5-local wound care with Santyl to the base of the wound followed by the wound VAC to be changed Friday and 6-patient did got a PICC line and plan is for vancomycin cefepime and oral Flagyl for total of 6 weeks and to close outpatient follow-up Time with Patient: Less than 30
[2021-10-02] MEDS: CEFEPIME 2 GM in SODIUM CHLORIDE 0.9% 100 ML IVPB SCH (02:44)
[2021-10-02] MEDS: SODIUM CHLORIDE 0.9% 1,000 ML IV SCH ×2 (02:45)
[2021-10-02 07:53] VITALS: BP 142/67; PULSE 91; TEMP 98.4
[2021-10-02] MEDS ORDERED: VANCOMYCIN TROUGH DUE 1 EACH MISC MISCELLANE ONE (08:00)
[2021-10-02] MEDS: PANTOPRAZOLE 40 MG TABLET PO SCH (08:04)
[2021-10-02] MEDS: amLODIPine 5 MG TAB PO SCH (08:04)
[2021-10-02] MEDS: metroNIDAZOLE 500 MG TAB PO SCH (08:04)
[2021-10-02 08:37] LABS: African American GFR (CKD) >90 (>60 ml/min/1.73 sqM); Anion Gap 7 mmol/L; Blood Urea Nitrogen 12 mg/dL (9-20); Calcium 7.9 mg/dL (8.4-10.2); Carbon Dioxide 21 mmol/L (22-30); Chloride 103 mmol/L (98-107); Glucose 89 mg/dL (74-99); Non-African American GFR(CKD) >90 (>60 ml/min/1.73 sqM); Potassium 4.3 mmol/L (3.5-5.1); Sodium 131 mmol/L (137-145)
[2021-10-02] MEDS: HEPARIN SODIUM,PORCINE/PF 5,000 UNIT/0.5 ML SYRINGE SQ SCH (08:40)
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
[2021-10-02] MEDS ORDERED: VANCOMYCIN 1,000 MG in SODIUM CHLORIDE 0.9% 250 ML IVPB SCH (10:00)
[2021-10-02] MEDS: COLLAGENASE 250 UNIT/GM OINTMENT 30 GM TUBE TOPICAL SCH (12:45)
--- NOTE | 2021-10-02 13:06 | P.PN ---
Subjective Progress Note Date: 10/02/21 CHIEF COMPLAINT: Decubitus ulcer HISTORY OF PRESENT ILLNESS: Patient is status post debridement of decubitus ulcer. He has wound vacs in place. He's scheduled for discharge later today. He is tolerating regular diet. Has any pain. Patient did have a low-grade temp of 100.3 last night. No new labs PHYSICAL EXAM: VITAL SIGNS: Reviewed. GENERAL: Well-developed in no acute distress. HEENT: No sclera icterus. Extraocular movements grossly intact. Moist buccal mucosa. Head is atraumatic, normocephalic. ABDOMEN: Soft. Nondistended. Nontender. Patient has [address] that are functioning NEUROLOGIC: Alert and oriented. Cranial nerves II through XII grossly intact. ASSESSMENT: 1. Infected decubitus ulcers status post debridement PLAN: -Continue wound vacs -Continue offloading -Continue supportive care -Antibiotics per ID service -Patient can be discharge from surgical standpoint Physician Slitting Machine Operator Helper note has been reviewed by physician. Signing provider agrees with the documented findings, assessment, and plan of care. Objective - Vital Signs Vital signs: Vital Signs Temp 98.4 F 10/02/21 07:51 Pulse 91 10/02/21 07:51 Resp 16 10/02/21 07:51 BP 142/67 10/02/21 07:51 Pulse Ox 97 10/02/21 07:51 Intake & Output 10/01/21 10/02/21 10/02/21 18:59 06:59 18:59 Intake Total 25 Output Total 1999 1200 Balance -1974 -1199 Weight 68.039 kg Intake: IV 25 Output: Urine 1999 1199 Other: Voiding Method Self-Catheterization Self-Catheterization # Voids 1 # Bowel Movements 1 - Labs CBC & Chem 7: 10/01/21 11:21 10/02/21 07:07 Labs: Abnormal Lab Results - Last 24 Hours (Table) 10/02/21 Range/Units 07:07 Sodium 131 L (137-145) mmol/L Carbon Dioxide 21 L (22-30) mmol/L Calcium 7.9 L (8.4-10.2) mg/dL Microbiology - Last 24 Hours (Table) 09/26/21 19:18 Blood Culture - Preliminary Blood No Growth after 120 hours 09/26/21 19:10 Blood Culture - Preliminary Blood No Growth after 120 hours 09/28/21 13:26 Anaerobic Culture - Final Buttock Anaerobic Gm Negative Bacilli Anaerobic Gm Negative Bacilli#2 Anaerobic Gm Negative Bacilli#3 09/28/21 13:26 Anaerobic Culture - Final Buttock Anaerobic Gm Negative Bacilli Anaerobic Gm Negative Bacilli#2 09/28/21 13:26 Gram Stain - Final Buttock Tissue Culture - Final Enterococcus faecalis Diphtheroid species Diphtheroid species#2
--- NOTE | 2021-10-05 17:29 | P.PN ---
Subjective Progress Note Date: 10/02/21 Principal diagnosis: Infected sacral and left trochanteric pressure ulcer Patient is a 76 year male with a past medical history significant for paraplegia admitted to the hospital with worsening sacral and left trochanteric pressure ulcer in this patient who is status post surgical debridement of those ulcer completed on 09/28/2021 and was noticed the sacral area To Be Extended down to the Coccyx. Patient is a PICC line currently waiting for placement On today's evaluation that is 10/02/2021, the patient denies any fever or any chills, patient denies pain to the sacral wound area , the patient denies chest pain or shortness of breath or cough, the patient denies nausea no vomiting no abdominal pain no diarrhea, patient currently waiting for placement Objective - Vital Signs Vital signs: Vital Signs Temp 98.4 F 10/02/21 07:51 Pulse 91 10/02/21 07:51 Resp 16 10/02/21 07:51 BP 142/67 10/02/21 07:51 Pulse Ox 97 10/02/21 07:51 Intake & Output 10/01/21 10/02/21 10/02/21 18:59 06:59 18:59 Intake Total 25 Output Total 1999 1200 Balance -1974 -1199 Weight 68.039 kg Intake: IV 25 Output: Urine 1999 1199 Other: Voiding Method Self-Catheterization Self-Catheterization # Voids 1 # Bowel Movements 1 - Exam GENERAL DESCRIPTION: An elderly male lying in bed in no distress RESPIRATORY SYSTEM: Unlabored breathing , decreased breath sounds at bases HEART: S1 S2 regular rate and rhythm , ABDOMEN: Soft , no tenderness Sacral and left tuberosity wound had did have some slough tissue minimal surrounding redness no drainage EXTREMITIES: No edema feet - Labs CBC & Chem 7: 10/01/21 11:21 10/02/21 07:07 Labs: Abnormal Lab Results - Last 24 Hours (Table) 10/02/21 Range/Units 07:07 Sodium 131 L (137-145) mmol/L Carbon Dioxide 21 L (22-30) mmol/L Calcium 7.9 L (8.4-10.2) mg/dL Microbiology - Last 24 Hours (Table) 09/26/21 19:18 Blood Culture - Preliminary Blood No Growth after 120 hours 09/26/21 19:10 Blood Culture - Preliminary Blood No Growth after 120 hours 09/28/21 13:26 Anaerobic Culture - Final Buttock Anaerobic Gm Negative Bacilli Anaerobic Gm Negative Bacilli#2 Anaerobic Gm Negative Bacilli#3 09/28/21 13:26 Anaerobic Culture - Final Buttock Anaerobic Gm Negative Bacilli Anaerobic Gm Negative Bacilli#2 09/28/21 13:26 Gram Stain - Final Buttock Tissue Culture - Final Enterococcus faecalis Diphtheroid species Diphtheroid species#2 Assessment and Plan (1) Infected decubitus ulcer Status: Acute Code(s): L89.90 - PRESSURE ULCER OF UNSPECIFIED SITE, UNSPECIFIED STAGE; L08.9 - LOCAL INFECTION OF THE SKIN AND SUBCUTANEOUS TISSUE, UNSP SNOMED Code(s): 911781906 (2) Sepsis Status: Acute Code(s): A41.9 - SEPSIS, UNSPECIFIED ORGANISM SNOMED Code(s): 32178708 Plan: 1patient presented to hospital with sepsis source is infected sacral and bilateral ischial pressure ulcer and will need to cover for the gram-positive as well as the gram-negative pathogen. 2patient with multiple antibiotic allergies that would limit the number of an tibiotics safe to use. 3patient is status post surgical debridement and deep culture which are curr ently growing group D enterococcus, Klebsiella and anaerobes 4patient to continue with vancomycin pharmacy to dose target trough of 15 , cefepime 2 g every 8 hours and Flagyl 6 weeks 5-local wound care with Santyl to the base of the wound followed by the wound VAC to be changed Friday and Advised to follow-up in the wound care center next week for continued local care and antibiotic Time with Patient: Less than 30
== END 2021-10-02 14:41 | DRG 853 ==
LOC: EC 15:10 → 3SCARD 16:42 → 5NMEDONC 09-27 22:15
PROVIDERS: ADMIT Internal Medicine Geriatric Medicine; ATTEND Internal Medicine Geriatric Medicine
PROC: 0KBP0ZZ Excision of Left Hip Muscle, Open Approach (ICD-10-PCS; 2021-09-28)
PROC: B5181ZA Fluoroscopy of Superior Vena Cava using Low Osmolar Contrast, Guidance (ICD-10-PCS; principal; 2021-09-28 12:20)
PROC: B548ZZA Ultrasonography of Superior Vena Cava, Guidance (ICD-10-PCS; principal; 2021-09-28 12:20)
PROC: 02HV33Z Insertion of Infusion Device into Superior Vena Cava, Percutaneous Approach (ICD-10-PCS; principal; 2021-09-28 12:20)
DX: A41.9 Sepsis, unspecified organism (principal); L89.154 Pressure ulcer of sacral region, stage 4; L89.213 Pressure ulcer of right hip, stage 3; E43 Unspecified severe protein-calorie malnutrition; G82.20 Paraplegia, unspecified; E87.1 Hypo-osmolality and hyponatremia; E44.0 Moderate protein-calorie malnutrition; S31.819A Unspecified open wound of right buttock, initial encounter; I10 Essential (primary) hypertension; V89.2XXS Person injured in unspecified motor-vehicle accident, traffic, sequela; N31.9 Neuromuscular dysfunction of bladder, unspecified; Z87.442 Personal history of urinary calculi; Z79.2 Long term (current) use of antibiotics; Z79.899 Other long term (current) drug therapy; Z88.1 Allergy status to other antibiotic agents; Z99.3 Dependence on wheelchair; Z68.20 Body mass index [BMI] 20.0-20.9, adult
CPT/HCPCS: 36573; 80048; 80053; 80202; 81001; 82565; 83605; 85025; 85027; 85610; 85730; 87040; 87070; 87075; 87077; 87086; 87186; 87205; 87635; 88304; 93005; 96361; 96365; 96366; 96368; 99285